=== PATIENT | female | born 1955 | race Caucasian/White ===

== ENCOUNTER → 2021-07-29 | Outpatient (CLI) | payer OTHER | END | disposition home or self-care (01) | LOC: LAB SHORT 12:00 | DX: T81.30XA Disruption of wound, unspecified, initial encounter (principal) | CPT/HCPCS: 87070; 87075; 87077; 87186; 87205 ==

== ENCOUNTER → 2022-04-05 | Outpatient (CLI) | payer OTHER ==
[2022-04-05 15:19] LABS: Source, Urine Clean Catch
[2022-04-05 17:37] LABS: Blood, Urine 1+ (Neg); Glucose Qualitative, Urine Neg (Neg); Ketones, Urine 1+ (Neg); Leukocyte Esterase, Urine 2+ (Neg); Nitrite, Urine Pos (Neg); Protein, Urine 2+ (Neg); Specific Gravity, Urine 1.025 (1.003-1.022); Urobilinogen, Urine 2+ (Normal)
[2022-04-05 17:47] LABS: Bilirubin, Urine 1+ (Neg)
[2022-04-05 17:48] LABS: Color, Urine Yellow (P-Yellow)
[2022-04-05 17:50] LABS: Bacteria Mod /hpf; Mucus Mod (0-Heavy); Squamous Epithelial Cells Mod /hpf (Few)
[2022-04-05 17:51] LABS: Appearance, Urine Hazy (Clear); Renal Epithelial Few /hpf (0-Rare)
[2022-04-06 10:37] LABS: Candida species (DNA Probe) Negative (NEGATIVE); G. vaginalis (DNA Probe) Negative (NEGATIVE); T. vaginalis (DNA Probe) Negative (NEGATIVE)
[2022-04-06 15:11] LABS: HPV 16 Negative (Negative); HPV 18 Negative (Negative); HPV OTHER HR TYPES Negative (Negative)
== END | disposition home or self-care (01) ==
LOC: LAB SHORT 14:36 → LAB 14:36
PROVIDERS: Obstetrics & Gynecology
DX: Z01.419 Encounter for gynecological examination (general) (routine) without abnormal findings (principal); N89.8 Other specified noninflammatory disorders of vagina; R10.2 Pelvic and perineal pain
CPT/HCPCS: 81001; 87086; 87480; 87510; 87624; 87660; G0123

== ENCOUNTER 2022-05-17 14:47 | Day surgery (SDC) | payer OTHER ==
[~2022-05-17] VITALS: Ht 167.6 cm; Wt 243.2 kg
[2022-05-17] MEDS ORDERED: AMIT50 PO (15:14)
[2022-05-17] MEDS ORDERED: Aspir 8181 MG PO (15:16)
[2022-05-17] MEDS ORDERED: Celexa20 MG PO (15:17)
[2022-05-17] MEDS ORDERED: METO25 PO (15:19)
[2022-05-17] MEDS ORDERED: DONEPEZIL HCL10 MG PO (15:19)
[2022-05-17] MEDS ORDERED: CLOP75 PO (15:19)
[2022-05-17] MEDS ORDERED: OMEP20ER PO (15:20)
[2022-05-17] MEDS ORDERED: OXYB5 PO (15:20)
[2022-05-17] MEDS ORDERED: SIMV40 PO (15:20)
[2022-05-17] MEDS ORDERED: OXYC5 PO ×2 (15:24)
== END 2022-05-17 16:37 | disposition home or self-care (01) ==
LOC: ORSCSDS 14:47
PROVIDERS: Ophthalmology
PROC: 08RJ3JZ Replacement of Right Lens with Synthetic Substitute, Percutaneous Approach (ICD-10-PCS; principal; 2022-05-17 16:00)
DX: H25.11 Age-related nuclear cataract, right eye (principal); I10 Essential (primary) hypertension; E78.00 Pure hypercholesterolemia, unspecified; K21.9 Gastro-esophageal reflux disease without esophagitis; I25.2 Old myocardial infarction; E03.9 Hypothyroidism, unspecified; R73.03 Prediabetes; Z79.02 Long term (current) use of antithrombotics/antiplatelets; Z79.82 Long term (current) use of aspirin; Z79.899 Other long term (current) drug therapy
CPT/HCPCS: 82947; J2001; J2250; J3010; J3301; J7040; V2632

== ENCOUNTER 2022-05-24 11:17 | Day surgery (SDC) | payer OTHER ==
[~2022-05-24] VITALS: Ht 167.6 cm; Wt 107.5 kg
[~2022-05-24 11:17] MED LIST: AMIT50 PO; Aspir 8181 MG PO; CLOP75 PO; Celexa20 MG PO; DONEPEZIL HCL10 MG PO; METO25 PO; OMEP20ER PO; OXYB5 PO; OXYC5 PO; SIMV40 PO
--- NOTE | 2022-05-24 11:35 | NUR ---
05/24/22 1135 Mamadou Ho CALL LIGHT WITHIN REACH. TETRACAINE IN LEFT EYE AT 1135 AND PLEDGETT AT 1136
== END 2022-05-24 13:17 | disposition home or self-care (01) ==
LOC: ORSCSDS 11:17
PROVIDERS: Ophthalmology
PROC: 08RK3JZ Replacement of Left Lens with Synthetic Substitute, Percutaneous Approach (ICD-10-PCS; principal; 2022-05-24 12:30)
DX: H25.12 Age-related nuclear cataract, left eye (principal); Z96.1 Presence of intraocular lens; I10 Essential (primary) hypertension; K21.9 Gastro-esophageal reflux disease without esophagitis; E66.9 Obesity, unspecified; Z68.38 Body mass index [BMI] 38.0-38.9, adult; Z79.82 Long term (current) use of aspirin; Z79.899 Other long term (current) drug therapy
CPT/HCPCS: 82947; J2001; J2250; J3010; J3301; J7040; V2632

== ENCOUNTER → 2022-06-27 | Outpatient (CLI) | payer OTHER | END | disposition home or self-care (01) | LOC: LAB 12:46 → LAB SHORT 12:46 | DX: N39.0 Urinary tract infection, site not specified (principal) | CPT/HCPCS: 87086; 87147 ==

== ENCOUNTER → 2023-11-29 | Outpatient (CLI) | payer OTHER ==
[2023-11-29 17:23] LABS: Creatinine, Urine Random 54.4 mg/dL (27.00-270.00); Microalb/Creat Ratio UR, Rand 9.375 mg/g (0.000-30.000); Microalbumin, Random Urine 5.1 mg/L (0.000-20.000)
== END | disposition home or self-care (01) ==
LOC: LAB SHORT 13:06 → LAB 13:06
PROVIDERS: Family Medicine
DX: E11.9 Type 2 diabetes mellitus without complications (principal)
CPT/HCPCS: 82043; 82570

== ENCOUNTER → 2024-08-14 | Outpatient (CLI) | payer OTHER ==
[~2024-08-14] MED LIST changes: +AMIT25 PO; +EUTHYROX125 MCG PO; +JARDIANCE10 MG PO; +METF500 PO; +METO25ER PO; +TIROSINT PO; +ZOLP5 PO
== END ==
LOC: LAB SHORT 15:34 → LAB 15:34
DX: N30.01 Acute cystitis with hematuria (principal)
CPT/HCPCS: 87086

== ENCOUNTER 2024-08-30 03:31 | Day surgery (SDC) | payer MEDICARE, OTHER ==
[2024-08-30] MEDS ORDERED: Lidocaine HCl 4% Cream 5 GM ONE (13:42)
[2024-08-30] MEDS ORDERED: Silver Nitr/Potassium Nitrate 1 EA APPL ONE (14:10)
== END 2024-08-30 23:00 | disposition home or self-care (01) ==
LOC: WOUND 03:31
DX: L98.492 Non-pressure chronic ulcer of skin of other sites with fat layer exposed (principal); N64.1 Fat necrosis of breast; Y84.2 Radiological procedure and radiotherapy as the cause of abnormal reaction of the patient, or of later complication, without mention of misadventure at the time of the procedure; L59.8 Other specified disorders of the skin and subcutaneous tissue related to radiation; G30.9 Alzheimer's disease, unspecified; F02.80 Dementia in other diseases classified elsewhere, unspecified severity, without behavioral disturbance, psychotic disturbance, mood disturbance, and anxiety; E11.42 Type 2 diabetes mellitus with diabetic polyneuropathy; I11.0 Hypertensive heart disease with heart failure; I50.22 Chronic systolic (congestive) heart failure; K21.9 Gastro-esophageal reflux disease without esophagitis; E03.9 Hypothyroidism, unspecified; Z85.3 Personal history of malignant neoplasm of breast; Z87.891 Personal history of nicotine dependence; Z79.84 Long term (current) use of oral hypoglycemic drugs; Z88.5 Allergy status to narcotic agent; Z88.2 Allergy status to sulfonamides; Z88.8 Allergy status to other drugs, medicaments and biological substances; Z90.49 Acquired absence of other specified parts of digestive tract
CPT/HCPCS: 11104; 88305; 88312; A6213; A9270; G0463

== ENCOUNTER 2024-09-06 04:03 | Day surgery (SDC) | payer MEDICARE, OTHER | END 2024-09-06 23:00 | disposition home or self-care (01) | LOC: WOUND 04:03 | DX: L59.8 Other specified disorders of the skin and subcutaneous tissue related to radiation (principal); L98.492 Non-pressure chronic ulcer of skin of other sites with fat layer exposed; L58.9 Radiodermatitis, unspecified; E11.42 Type 2 diabetes mellitus with diabetic polyneuropathy; I50.22 Chronic systolic (congestive) heart failure; G30.9 Alzheimer's disease, unspecified; Z85.3 Personal history of malignant neoplasm of breast | CPT/HCPCS: A6213 ==

== ENCOUNTER 2024-09-12 00:17 | Day surgery (SDC) | payer MEDICARE, OTHER | END 2024-09-12 23:00 | disposition home or self-care (01) | LOC: WOUND 00:17 | DX: T81.31XA Disruption of external operation (surgical) wound, not elsewhere classified, initial encounter (principal); L98.492 Non-pressure chronic ulcer of skin of other sites with fat layer exposed; L58.9 Radiodermatitis, unspecified; E11.42 Type 2 diabetes mellitus with diabetic polyneuropathy; I50.22 Chronic systolic (congestive) heart failure; G30.9 Alzheimer's disease, unspecified; Z85.3 Personal history of malignant neoplasm of breast; Y83.8 Other surgical procedures as the cause of abnormal reaction of the patient, or of later complication, without mention of misadventure at the time of the procedure | CPT/HCPCS: A6213 ==

== ENCOUNTER 2024-09-19 04:00 | Day surgery (SDC) | payer MEDICARE, OTHER ==
[2024-09-19] MEDS ORDERED: Lidocaine HCl 4% Cream 5 GM ONE (13:22)
== END 2024-09-19 23:00 | disposition home or self-care (01) ==
LOC: WOUND 04:00
DX: T81.31XA Disruption of external operation (surgical) wound, not elsewhere classified, initial encounter (principal); L58.9 Radiodermatitis, unspecified; E11.42 Type 2 diabetes mellitus with diabetic polyneuropathy; G30.9 Alzheimer's disease, unspecified; F02.80 Dementia in other diseases classified elsewhere, unspecified severity, without behavioral disturbance, psychotic disturbance, mood disturbance, and anxiety; I50.22 Chronic systolic (congestive) heart failure; Z85.3 Personal history of malignant neoplasm of breast; Z90.11 Acquired absence of right breast and nipple
CPT/HCPCS: A6213; A9270

== ENCOUNTER 2024-09-26 01:56 | Day surgery (SDC) | payer MEDICARE, OTHER | END 2024-09-26 23:00 | disposition home or self-care (01) | LOC: WOUND 01:56 | DX: L98.492 Non-pressure chronic ulcer of skin of other sites with fat layer exposed (principal); L59.8 Other specified disorders of the skin and subcutaneous tissue related to radiation; L58.9 Radiodermatitis, unspecified; E11.42 Type 2 diabetes mellitus with diabetic polyneuropathy; I50.22 Chronic systolic (congestive) heart failure; G30.9 Alzheimer's disease, unspecified; Z85.3 Personal history of malignant neoplasm of breast | CPT/HCPCS: A6213 ==

== ENCOUNTER 2024-10-02 01:50 | Day surgery (SDC) | payer MEDICARE, OTHER ==
[2024-10-02] MEDS ORDERED: Lidocaine HCl 4% Cream 5 GM ONE (12:48)
== END 2024-10-02 23:00 ==
LOC: WOUND 01:50
DX: L98.492 Non-pressure chronic ulcer of skin of other sites with fat layer exposed (principal); L59.8 Other specified disorders of the skin and subcutaneous tissue related to radiation; L58.9 Radiodermatitis, unspecified; E11.42 Type 2 diabetes mellitus with diabetic polyneuropathy; I50.22 Chronic systolic (congestive) heart failure; G30.9 Alzheimer's disease, unspecified; Z85.3 Personal history of malignant neoplasm of breast
CPT/HCPCS: A6213; A9270

== ENCOUNTER 2024-10-10 01:49 | Day surgery (SDC) | payer MEDICARE, OTHER ==
[2024-10-10] MEDS ORDERED: Lidocaine HCl 4% Cream 5 GM ONE (14:11)
== END 2024-10-10 23:00 | disposition home or self-care (01) ==
LOC: WOUND 01:49
DX: E11.622 Type 2 diabetes mellitus with other skin ulcer (principal); L98.492 Non-pressure chronic ulcer of skin of other sites with fat layer exposed; L59.8 Other specified disorders of the skin and subcutaneous tissue related to radiation; L58.9 Radiodermatitis, unspecified; I50.22 Chronic systolic (congestive) heart failure; G30.9 Alzheimer's disease, unspecified; Z85.3 Personal history of malignant neoplasm of breast
CPT/HCPCS: A6213; A9270

== ENCOUNTER 2024-10-17 01:16 | Day surgery (SDC) | payer MEDICARE, OTHER ==
[2024-10-17] MEDS ORDERED: Lidocaine HCl 4% Cream 5 GM ONE (12:51)
== END 2024-10-17 23:00 | disposition home or self-care (01) ==
LOC: WOUND 01:16
DX: E11.622 Type 2 diabetes mellitus with other skin ulcer (principal); L98.492 Non-pressure chronic ulcer of skin of other sites with fat layer exposed; L59.8 Other specified disorders of the skin and subcutaneous tissue related to radiation; L58.9 Radiodermatitis, unspecified; E11.42 Type 2 diabetes mellitus with diabetic polyneuropathy; I50.22 Chronic systolic (congestive) heart failure; G30.9 Alzheimer's disease, unspecified
CPT/HCPCS: A6213; A9270

== ENCOUNTER 2024-10-31 01:44 | Day surgery (SDC) | payer MEDICARE, OTHER ==
[2024-10-31] MEDS ORDERED: Lidocaine HCl 4% Cream 5 GM ONE (12:50)
== END 2024-10-31 23:00 | disposition home or self-care (01) ==
LOC: WOUND 01:44
DX: T81.31XA Disruption of external operation (surgical) wound, not elsewhere classified, initial encounter (principal); L98.492 Non-pressure chronic ulcer of skin of other sites with fat layer exposed; L59.8 Other specified disorders of the skin and subcutaneous tissue related to radiation; E11.42 Type 2 diabetes mellitus with diabetic polyneuropathy; I50.22 Chronic systolic (congestive) heart failure; G30.9 Alzheimer's disease, unspecified; Z85.3 Personal history of malignant neoplasm of breast; Y83.8 Other surgical procedures as the cause of abnormal reaction of the patient, or of later complication, without mention of misadventure at the time of the procedure
CPT/HCPCS: A6196; A6213; A9270

== ENCOUNTER 2024-11-21 00:50 | Day surgery (SDC) | payer MEDICARE, OTHER ==
[2024-11-21] MEDS ORDERED: Lidocaine HCl 4% Cream 5 GM ONE (13:06)
== END 2024-11-21 23:00 | disposition home or self-care (01) ==
LOC: WOUND 00:50
DX: L98.492 Non-pressure chronic ulcer of skin of other sites with fat layer exposed (principal); L59.8 Other specified disorders of the skin and subcutaneous tissue related to radiation; L58.9 Radiodermatitis, unspecified; E11.42 Type 2 diabetes mellitus with diabetic polyneuropathy; I50.22 Chronic systolic (congestive) heart failure; G30.9 Alzheimer's disease, unspecified; Z85.3 Personal history of malignant neoplasm of breast
CPT/HCPCS: A9270

== ENCOUNTER 2024-12-19 01:30 | Day surgery (SDC) | payer MEDICARE, OTHER ==
[2024-12-19] MEDS ORDERED: Lidocaine HCl 4% Cream 5 GM ONE (13:07)
== END 2024-12-19 23:00 | disposition home or self-care (01) ==
LOC: WOUND 01:30
DX: E11.622 Type 2 diabetes mellitus with other skin ulcer (principal); L98.492 Non-pressure chronic ulcer of skin of other sites with fat layer exposed; L58.9 Radiodermatitis, unspecified; L59.8 Other specified disorders of the skin and subcutaneous tissue related to radiation; E11.42 Type 2 diabetes mellitus with diabetic polyneuropathy; I50.22 Chronic systolic (congestive) heart failure; G30.9 Alzheimer's disease, unspecified; Z85.3 Personal history of malignant neoplasm of breast
CPT/HCPCS: A9270

== ENCOUNTER → 2024-12-20 | Outpatient (CLI) | payer MEDICARE, OTHER ==
[2024-12-20 18:33] LABS: Creatinine, Urine Random 119.0 mg/dL (27.00-270.00); Microalb/Creat Ratio UR, Rand 11.092 mg/g (0.000-30.000); Microalbumin, Random Urine 13.2 mg/L (0.000-20.000)
== END ==
LOC: LAB SHORT 16:57 → LAB 16:57
PROVIDERS: Family Medicine
DX: E11.9 Type 2 diabetes mellitus without complications (principal)
CPT/HCPCS: 82043; 82570; 83036

== ENCOUNTER 2024-12-26 02:20 | Day surgery (SDC) | payer MEDICARE, OTHER ==
[2024-12-26] MEDS ORDERED: Lidocaine HCl 4% Cream 5 GM ONE (13:09)
== END 2024-12-26 23:00 | disposition home or self-care (01) ==
LOC: WOUND 02:20
DX: L98.492 Non-pressure chronic ulcer of skin of other sites with fat layer exposed (principal); L59.8 Other specified disorders of the skin and subcutaneous tissue related to radiation; L58.9 Radiodermatitis, unspecified; E11.42 Type 2 diabetes mellitus with diabetic polyneuropathy; I50.22 Chronic systolic (congestive) heart failure; G30.9 Alzheimer's disease, unspecified; Z85.3 Personal history of malignant neoplasm of breast
CPT/HCPCS: A9270

== ENCOUNTER 2025-01-02 03:36 | Day surgery (SDC) | payer MEDICARE, OTHER ==
[2025-01-02] MEDS ORDERED: Lidocaine HCl 4% Cream 5 GM ONE (15:43)
== END 2025-01-02 23:00 | disposition home or self-care (01) ==
LOC: WOUND 03:36
DX: L98.492 Non-pressure chronic ulcer of skin of other sites with fat layer exposed (principal); L58.9 Radiodermatitis, unspecified; E11.42 Type 2 diabetes mellitus with diabetic polyneuropathy; I50.22 Chronic systolic (congestive) heart failure; G30.9 Alzheimer's disease, unspecified; Z85.3 Personal history of malignant neoplasm of breast; Z88.2 Allergy status to sulfonamides; Z88.5 Allergy status to narcotic agent; Z88.8 Allergy status to other drugs, medicaments and biological substances; Z91.048 Other nonmedicinal substance allergy status
CPT/HCPCS: A9270

== ENCOUNTER 2025-01-09 03:44 | Day surgery (SDC) | payer MEDICARE, OTHER ==
[2025-01-09] MEDS ORDERED: Lidocaine HCl 4% Cream 5 GM ONE (12:53)
== END 2025-01-09 23:00 | disposition home or self-care (01) ==
LOC: WOUND 03:44
DX: S21.001A Unspecified open wound of right breast, initial encounter (principal); L58.9 Radiodermatitis, unspecified; E11.622 Type 2 diabetes mellitus with other skin ulcer; L98.492 Non-pressure chronic ulcer of skin of other sites with fat layer exposed; E11.42 Type 2 diabetes mellitus with diabetic polyneuropathy; I50.22 Chronic systolic (congestive) heart failure; G30.9 Alzheimer's disease, unspecified; Z85.3 Personal history of malignant neoplasm of breast
CPT/HCPCS: A9270

== ENCOUNTER 2025-01-16 01:53 | Day surgery (SDC) | payer MEDICARE, OTHER ==
[2025-01-16] MEDS ORDERED: Lidocaine HCl 4% Cream 5 GM ONE (13:18)
== END 2025-01-16 23:00 | disposition home or self-care (01) ==
LOC: WOUND 01:53
DX: T81.31XA Disruption of external operation (surgical) wound, not elsewhere classified, initial encounter (principal); L59.8 Other specified disorders of the skin and subcutaneous tissue related to radiation; E11.42 Type 2 diabetes mellitus with diabetic polyneuropathy; I50.22 Chronic systolic (congestive) heart failure; G30.9 Alzheimer's disease, unspecified; Z85.3 Personal history of malignant neoplasm of breast; Z90.11 Acquired absence of right breast and nipple
CPT/HCPCS: A9270

== ENCOUNTER 2025-01-30 02:10 | Day surgery (SDC) | payer MEDICARE, OTHER ==
[2025-01-30] MEDS ORDERED: Lidocaine HCl 4% Cream 5 GM ONE (11:10)
== END 2025-01-30 23:00 | disposition home or self-care (01) ==
LOC: WOUND 02:10
DX: T81.31XD Disruption of external operation (surgical) wound, not elsewhere classified, subsequent encounter (principal); L58.9 Radiodermatitis, unspecified; E11.42 Type 2 diabetes mellitus with diabetic polyneuropathy; I50.22 Chronic systolic (congestive) heart failure; G30.9 Alzheimer's disease, unspecified; F02.80 Dementia in other diseases classified elsewhere, unspecified severity, without behavioral disturbance, psychotic disturbance, mood disturbance, and anxiety; Z85.3 Personal history of malignant neoplasm of breast
CPT/HCPCS: A9270; G0463

== ENCOUNTER 2025-02-06 03:24 | Day surgery (SDC) | payer MEDICARE, OTHER ==
[2025-02-06] MEDS ORDERED: Lidocaine HCl 4% Cream 5 GM ONE (12:24)
== END 2025-02-06 23:02 | disposition home or self-care (01) ==
LOC: WOUND 03:24
DX: T81.31XA Disruption of external operation (surgical) wound, not elsewhere classified, initial encounter (principal); L98.492 Non-pressure chronic ulcer of skin of other sites with fat layer exposed; L58.9 Radiodermatitis, unspecified; E11.42 Type 2 diabetes mellitus with diabetic polyneuropathy; I50.22 Chronic systolic (congestive) heart failure; G30.9 Alzheimer's disease, unspecified; F02.80 Dementia in other diseases classified elsewhere, unspecified severity, without behavioral disturbance, psychotic disturbance, mood disturbance, and anxiety; Z85.3 Personal history of malignant neoplasm of breast
CPT/HCPCS: A9270

== ENCOUNTER 2025-02-13 00:44 | Day surgery (SDC) | payer MEDICARE, OTHER ==
[2025-02-13] MEDS ORDERED: Lidocaine HCl 4% Cream 5 GM ONE (12:42)
== END 2025-02-13 23:00 | disposition home or self-care (01) ==
LOC: WOUND 00:44
DX: T81.31XA Disruption of external operation (surgical) wound, not elsewhere classified, initial encounter (principal); L58.9 Radiodermatitis, unspecified; L59.8 Other specified disorders of the skin and subcutaneous tissue related to radiation; E11.42 Type 2 diabetes mellitus with diabetic polyneuropathy; I50.22 Chronic systolic (congestive) heart failure; G30.9 Alzheimer's disease, unspecified; F02.80 Dementia in other diseases classified elsewhere, unspecified severity, without behavioral disturbance, psychotic disturbance, mood disturbance, and anxiety; Z85.3 Personal history of malignant neoplasm of breast
CPT/HCPCS: A9270

== ENCOUNTER 2025-02-20 00:26 | Day surgery (SDC) | payer MEDICARE, OTHER | END 2025-02-20 23:00 | disposition home or self-care (01) | LOC: WOUND 00:26 | DX: T81.31XD Disruption of external operation (surgical) wound, not elsewhere classified, subsequent encounter (principal); L59.8 Other specified disorders of the skin and subcutaneous tissue related to radiation; E11.42 Type 2 diabetes mellitus with diabetic polyneuropathy; I50.22 Chronic systolic (congestive) heart failure; G30.9 Alzheimer's disease, unspecified; F02.80 Dementia in other diseases classified elsewhere, unspecified severity, without behavioral disturbance, psychotic disturbance, mood disturbance, and anxiety; Z85.3 Personal history of malignant neoplasm of breast | CPT/HCPCS: G0463 ==

== ENCOUNTER 2025-03-06 02:16 | Day surgery (SDC) | payer MEDICARE, OTHER ==
[2025-03-06] MEDS ORDERED: Lidocaine HCl 4% Cream 5 GM ONE (12:51)
== END 2025-03-06 23:00 | disposition home or self-care (01) ==
LOC: WOUND 02:16
DX: L58.9 Radiodermatitis, unspecified (principal); T81.31XA Disruption of external operation (surgical) wound, not elsewhere classified, initial encounter; L59.8 Other specified disorders of the skin and subcutaneous tissue related to radiation; E11.42 Type 2 diabetes mellitus with diabetic polyneuropathy; I50.22 Chronic systolic (congestive) heart failure; G30.9 Alzheimer's disease, unspecified; F02.80 Dementia in other diseases classified elsewhere, unspecified severity, without behavioral disturbance, psychotic disturbance, mood disturbance, and anxiety; Z85.3 Personal history of malignant neoplasm of breast; Z90.11 Acquired absence of right breast and nipple
CPT/HCPCS: A9270

== ENCOUNTER 2025-03-06 02:20 | Day surgery (SDC) | payer MEDICARE, OTHER | END 2025-03-06 23:00 | disposition home or self-care (01) | LOC: HBO 02:20 | DX: L59.8 Other specified disorders of the skin and subcutaneous tissue related to radiation (principal); Y84.2 Radiological procedure and radiotherapy as the cause of abnormal reaction of the patient, or of later complication, without mention of misadventure at the time of the procedure; L58.9 Radiodermatitis, unspecified; E11.42 Type 2 diabetes mellitus with diabetic polyneuropathy; I50.22 Chronic systolic (congestive) heart failure; G30.9 Alzheimer's disease, unspecified; F02.80 Dementia in other diseases classified elsewhere, unspecified severity, without behavioral disturbance, psychotic disturbance, mood disturbance, and anxiety; Z85.3 Personal history of malignant neoplasm of breast; T81.31XA Disruption of external operation (surgical) wound, not elsewhere classified, initial encounter; Z90.11 Acquired absence of right breast and nipple | CPT/HCPCS: 82947; A9270; G0277 ==

== ENCOUNTER 2025-03-07 00:33 | Day surgery (SDC) | payer MEDICARE, OTHER | END 2025-03-07 23:00 | disposition home or self-care (01) | LOC: HBO 00:33 | DX: L98.492 Non-pressure chronic ulcer of skin of other sites with fat layer exposed (principal); L59.8 Other specified disorders of the skin and subcutaneous tissue related to radiation; L58.9 Radiodermatitis, unspecified; E11.42 Type 2 diabetes mellitus with diabetic polyneuropathy; I50.22 Chronic systolic (congestive) heart failure; G30.9 Alzheimer's disease, unspecified; Z85.3 Personal history of malignant neoplasm of breast | CPT/HCPCS: 82947; G0277 ==

== ENCOUNTER 2025-03-10 01:29 | Day surgery (SDC) | payer MEDICARE, OTHER | END 2025-03-10 23:00 | disposition home or self-care (01) | LOC: HBO 01:29 | DX: L59.8 Other specified disorders of the skin and subcutaneous tissue related to radiation (principal); Y84.2 Radiological procedure and radiotherapy as the cause of abnormal reaction of the patient, or of later complication, without mention of misadventure at the time of the procedure; L58.9 Radiodermatitis, unspecified; E11.42 Type 2 diabetes mellitus with diabetic polyneuropathy; G30.9 Alzheimer's disease, unspecified; F02.80 Dementia in other diseases classified elsewhere, unspecified severity, without behavioral disturbance, psychotic disturbance, mood disturbance, and anxiety; I50.22 Chronic systolic (congestive) heart failure; Z85.3 Personal history of malignant neoplasm of breast | CPT/HCPCS: 82947; G0277 ==

== ENCOUNTER 2025-03-11 02:32 | Day surgery (SDC) | payer MEDICARE, OTHER | END 2025-03-11 22:00 | disposition home or self-care (01) | LOC: HBO 02:32 | DX: L59.8 Other specified disorders of the skin and subcutaneous tissue related to radiation (principal); Y84.2 Radiological procedure and radiotherapy as the cause of abnormal reaction of the patient, or of later complication, without mention of misadventure at the time of the procedure; L58.9 Radiodermatitis, unspecified; E11.42 Type 2 diabetes mellitus with diabetic polyneuropathy; I50.22 Chronic systolic (congestive) heart failure; G30.9 Alzheimer's disease, unspecified; F02.80 Dementia in other diseases classified elsewhere, unspecified severity, without behavioral disturbance, psychotic disturbance, mood disturbance, and anxiety; Z85.3 Personal history of malignant neoplasm of breast | CPT/HCPCS: 82947; G0277 ==

== ENCOUNTER 2025-03-12 02:08 | Day surgery (SDC) | payer MEDICARE, OTHER | END 2025-03-12 23:00 | disposition home or self-care (01) | LOC: HBO 02:08 | DX: L59.8 Other specified disorders of the skin and subcutaneous tissue related to radiation (principal); E11.42 Type 2 diabetes mellitus with diabetic polyneuropathy; I50.22 Chronic systolic (congestive) heart failure; G30.9 Alzheimer's disease, unspecified; Y84.2 Radiological procedure and radiotherapy as the cause of abnormal reaction of the patient, or of later complication, without mention of misadventure at the time of the procedure; Y78.1 Therapeutic (nonsurgical) and rehabilitative radiological devices associated with adverse incidents; Z85.3 Personal history of malignant neoplasm of breast | CPT/HCPCS: 82947; G0277 ==

== ENCOUNTER 2025-03-13 00:33 | Day surgery (SDC) | payer MEDICARE, OTHER | END 2025-03-13 22:30 | disposition home or self-care (01) | LOC: HBO 00:33 | DX: L59.8 Other specified disorders of the skin and subcutaneous tissue related to radiation (principal); E11.42 Type 2 diabetes mellitus with diabetic polyneuropathy; G30.9 Alzheimer's disease, unspecified; Z85.3 Personal history of malignant neoplasm of breast; L98.492 Non-pressure chronic ulcer of skin of other sites with fat layer exposed | CPT/HCPCS: 82947; G0277 ==

== ENCOUNTER 2025-03-14 10:45 | Day surgery (SDC) | payer MEDICARE, OTHER | END 2025-03-14 23:00 | disposition home or self-care (01) | LOC: HBO 10:45 | DX: L59.8 Other specified disorders of the skin and subcutaneous tissue related to radiation (principal); Y84.2 Radiological procedure and radiotherapy as the cause of abnormal reaction of the patient, or of later complication, without mention of misadventure at the time of the procedure; L58.9 Radiodermatitis, unspecified; E11.42 Type 2 diabetes mellitus with diabetic polyneuropathy; I50.22 Chronic systolic (congestive) heart failure; G30.9 Alzheimer's disease, unspecified; F02.80 Dementia in other diseases classified elsewhere, unspecified severity, without behavioral disturbance, psychotic disturbance, mood disturbance, and anxiety; Z85.3 Personal history of malignant neoplasm of breast | CPT/HCPCS: 82947; G0277 ==

== ENCOUNTER 2025-03-18 00:39 | Day surgery (SDC) | payer MEDICARE, OTHER | END 2025-03-18 23:00 | disposition home or self-care (01) | LOC: HBO 00:39 | DX: L59.8 Other specified disorders of the skin and subcutaneous tissue related to radiation (principal); L98.492 Non-pressure chronic ulcer of skin of other sites with fat layer exposed; E11.42 Type 2 diabetes mellitus with diabetic polyneuropathy; I50.22 Chronic systolic (congestive) heart failure; G30.9 Alzheimer's disease, unspecified; Z85.3 Personal history of malignant neoplasm of breast | CPT/HCPCS: 82947; G0277 ==

== ENCOUNTER 2025-03-20 01:05 | Day surgery (SDC) | payer MEDICARE, OTHER | END 2025-03-20 23:00 | disposition home or self-care (01) | LOC: HBO 01:05 | DX: L59.8 Other specified disorders of the skin and subcutaneous tissue related to radiation (principal); Y84.2 Radiological procedure and radiotherapy as the cause of abnormal reaction of the patient, or of later complication, without mention of misadventure at the time of the procedure; L58.9 Radiodermatitis, unspecified; E11.42 Type 2 diabetes mellitus with diabetic polyneuropathy; I50.22 Chronic systolic (congestive) heart failure; G30.9 Alzheimer's disease, unspecified; F02.80 Dementia in other diseases classified elsewhere, unspecified severity, without behavioral disturbance, psychotic disturbance, mood disturbance, and anxiety; Z85.3 Personal history of malignant neoplasm of breast; T81.31XA Disruption of external operation (surgical) wound, not elsewhere classified, initial encounter | CPT/HCPCS: 82947; A9270; G0277 ==

== ENCOUNTER 2025-03-25 01:48 | Day surgery (SDC) | payer MEDICARE, OTHER | END 2025-03-25 23:00 | disposition home or self-care (01) | LOC: HBO 01:48 | DX: L59.8 Other specified disorders of the skin and subcutaneous tissue related to radiation (principal); Y84.2 Radiological procedure and radiotherapy as the cause of abnormal reaction of the patient, or of later complication, without mention of misadventure at the time of the procedure; L58.9 Radiodermatitis, unspecified; E11.42 Type 2 diabetes mellitus with diabetic polyneuropathy; I50.22 Chronic systolic (congestive) heart failure; G30.9 Alzheimer's disease, unspecified; F02.80 Dementia in other diseases classified elsewhere, unspecified severity, without behavioral disturbance, psychotic disturbance, mood disturbance, and anxiety; Z85.3 Personal history of malignant neoplasm of breast | CPT/HCPCS: 82947; G0277 ==

== ENCOUNTER 2025-03-26 00:24 | Day surgery (SDC) | payer MEDICARE, OTHER | END 2025-03-26 23:00 | disposition home or self-care (01) | LOC: HBO 00:24 | DX: L59.8 Other specified disorders of the skin and subcutaneous tissue related to radiation (principal); E11.42 Type 2 diabetes mellitus with diabetic polyneuropathy; I50.22 Chronic systolic (congestive) heart failure; G30.9 Alzheimer's disease, unspecified | CPT/HCPCS: 82947; G0277 ==

== ENCOUNTER 2025-03-27 02:53 | Day surgery (SDC) | payer MEDICARE, OTHER | END 2025-03-27 23:00 | disposition home or self-care (01) | LOC: HBO 02:53 | DX: L59.8 Other specified disorders of the skin and subcutaneous tissue related to radiation (principal); L58.9 Radiodermatitis, unspecified; E11.42 Type 2 diabetes mellitus with diabetic polyneuropathy; I50.22 Chronic systolic (congestive) heart failure; G30.9 Alzheimer's disease, unspecified; F02.80 Dementia in other diseases classified elsewhere, unspecified severity, without behavioral disturbance, psychotic disturbance, mood disturbance, and anxiety; Z85.3 Personal history of malignant neoplasm of breast | CPT/HCPCS: 82947; A9270; G0277 ==

== ENCOUNTER 2025-03-27 03:00 | Day surgery (SDC) | payer MEDICARE, OTHER ==
[2025-03-27] MEDS ORDERED: Lidocaine HCl 4% Cream 5 GM ONE (12:25)
== END 2025-03-27 23:00 | disposition home or self-care (01) ==
LOC: WOUND 03:00
DX: L59.8 Other specified disorders of the skin and subcutaneous tissue related to radiation (principal); L58.9 Radiodermatitis, unspecified; E11.42 Type 2 diabetes mellitus with diabetic polyneuropathy; I50.22 Chronic systolic (congestive) heart failure; G30.9 Alzheimer's disease, unspecified; F02.80 Dementia in other diseases classified elsewhere, unspecified severity, without behavioral disturbance, psychotic disturbance, mood disturbance, and anxiety; Z85.3 Personal history of malignant neoplasm of breast
CPT/HCPCS: A9270

== ENCOUNTER 2025-03-28 02:38 | Day surgery (SDC) | payer MEDICARE, OTHER | END 2025-03-28 23:00 | disposition home or self-care (01) | LOC: HBO 02:38 | DX: L59.8 Other specified disorders of the skin and subcutaneous tissue related to radiation (principal); Y84.2 Radiological procedure and radiotherapy as the cause of abnormal reaction of the patient, or of later complication, without mention of misadventure at the time of the procedure; L58.9 Radiodermatitis, unspecified; E11.42 Type 2 diabetes mellitus with diabetic polyneuropathy; I50.22 Chronic systolic (congestive) heart failure; G30.9 Alzheimer's disease, unspecified; F02.80 Dementia in other diseases classified elsewhere, unspecified severity, without behavioral disturbance, psychotic disturbance, mood disturbance, and anxiety; Z85.3 Personal history of malignant neoplasm of breast | CPT/HCPCS: 82947; G0277 ==

== ENCOUNTER 2025-03-31 04:01 | Day surgery (SDC) | payer MEDICARE, OTHER | END 2025-03-31 23:19 | disposition home or self-care (01) | LOC: HBO 04:01 | DX: E11.622 Type 2 diabetes mellitus with other skin ulcer (principal); L98.492 Non-pressure chronic ulcer of skin of other sites with fat layer exposed; L59.8 Other specified disorders of the skin and subcutaneous tissue related to radiation; L58.9 Radiodermatitis, unspecified; E11.42 Type 2 diabetes mellitus with diabetic polyneuropathy; I50.22 Chronic systolic (congestive) heart failure; G30.9 Alzheimer's disease, unspecified; Z79.02 Long term (current) use of antithrombotics/antiplatelets; Z79.84 Long term (current) use of oral hypoglycemic drugs; Z79.890 Hormone replacement therapy; Z79.899 Other long term (current) drug therapy; Z85.3 Personal history of malignant neoplasm of breast; Z88.2 Allergy status to sulfonamides; Z88.5 Allergy status to narcotic agent; Z88.8 Allergy status to other drugs, medicaments and biological substances | CPT/HCPCS: 82947; G0277 ==

== ENCOUNTER 2025-04-01 01:01 | Day surgery (SDC) | payer MEDICARE, OTHER | END 2025-04-01 23:00 | disposition home or self-care (01) | LOC: HBO 01:01 | DX: L59.8 Other specified disorders of the skin and subcutaneous tissue related to radiation (principal); Y84.2 Radiological procedure and radiotherapy as the cause of abnormal reaction of the patient, or of later complication, without mention of misadventure at the time of the procedure; L58.9 Radiodermatitis, unspecified; E11.42 Type 2 diabetes mellitus with diabetic polyneuropathy; I50.22 Chronic systolic (congestive) heart failure; G30.9 Alzheimer's disease, unspecified; F02.80 Dementia in other diseases classified elsewhere, unspecified severity, without behavioral disturbance, psychotic disturbance, mood disturbance, and anxiety; Z85.3 Personal history of malignant neoplasm of breast | CPT/HCPCS: 82947; G0277 ==

== ENCOUNTER 2025-04-02 03:06 | Day surgery (SDC) | payer MEDICARE, OTHER | END 2025-04-02 23:00 | disposition home or self-care (01) | LOC: HBO 03:06 | DX: L59.8 Other specified disorders of the skin and subcutaneous tissue related to radiation (principal); Y84.2 Radiological procedure and radiotherapy as the cause of abnormal reaction of the patient, or of later complication, without mention of misadventure at the time of the procedure; L58.9 Radiodermatitis, unspecified; E11.42 Type 2 diabetes mellitus with diabetic polyneuropathy; I50.22 Chronic systolic (congestive) heart failure; G30.9 Alzheimer's disease, unspecified; F02.80 Dementia in other diseases classified elsewhere, unspecified severity, without behavioral disturbance, psychotic disturbance, mood disturbance, and anxiety; Z85.3 Personal history of malignant neoplasm of breast | CPT/HCPCS: 82947; G0277 ==

== ENCOUNTER 2025-04-03 00:17 | Day surgery (SDC) | payer MEDICARE, OTHER ==
[2025-04-03] MEDS ORDERED: Lidocaine HCl 4% Cream 5 GM ONE (09:14)
== END 2025-04-03 23:00 | disposition home or self-care (01) ==
LOC: WOUND 00:17
DX: L59.8 Other specified disorders of the skin and subcutaneous tissue related to radiation (principal); L98.492 Non-pressure chronic ulcer of skin of other sites with fat layer exposed; L58.9 Radiodermatitis, unspecified; E11.42 Type 2 diabetes mellitus with diabetic polyneuropathy; I50.22 Chronic systolic (congestive) heart failure; G30.9 Alzheimer's disease, unspecified; Z85.3 Personal history of malignant neoplasm of breast; Z88.2 Allergy status to sulfonamides; Z88.5 Allergy status to narcotic agent; Z88.8 Allergy status to other drugs, medicaments and biological substances; Z91.048 Other nonmedicinal substance allergy status; Y84.2 Radiological procedure and radiotherapy as the cause of abnormal reaction of the patient, or of later complication, without mention of misadventure at the time of the procedure
CPT/HCPCS: 82947; A9270; G0277

== ENCOUNTER 2025-04-03 00:18 | Day surgery (SDC) | payer MEDICARE, OTHER | END 2025-04-03 23:00 | disposition home or self-care (01) | LOC: HBO 00:18 | DX: L59.8 Other specified disorders of the skin and subcutaneous tissue related to radiation (principal); L98.492 Non-pressure chronic ulcer of skin of other sites with fat layer exposed; L58.9 Radiodermatitis, unspecified; E11.42 Type 2 diabetes mellitus with diabetic polyneuropathy; I50.22 Chronic systolic (congestive) heart failure; G30.9 Alzheimer's disease, unspecified; Z85.3 Personal history of malignant neoplasm of breast; Z88.2 Allergy status to sulfonamides; Z88.5 Allergy status to narcotic agent; Z88.8 Allergy status to other drugs, medicaments and biological substances; Z91.048 Other nonmedicinal substance allergy status; Y84.2 Radiological procedure and radiotherapy as the cause of abnormal reaction of the patient, or of later complication, without mention of misadventure at the time of the procedure | CPT/HCPCS: 82947; G0277 ==

== ENCOUNTER 2025-04-04 00:13 | Day surgery (SDC) | payer MEDICARE, OTHER | END 2025-04-04 23:00 | disposition home or self-care (01) | LOC: HBO 00:13 | DX: E11.622 Type 2 diabetes mellitus with other skin ulcer (principal); L98.492 Non-pressure chronic ulcer of skin of other sites with fat layer exposed; L59.8 Other specified disorders of the skin and subcutaneous tissue related to radiation; L58.9 Radiodermatitis, unspecified; E11.42 Type 2 diabetes mellitus with diabetic polyneuropathy; I50.22 Chronic systolic (congestive) heart failure; G30.9 Alzheimer's disease, unspecified; Z85.3 Personal history of malignant neoplasm of breast | CPT/HCPCS: 82947; G0277 ==

== ENCOUNTER 2025-04-07 01:02 | Day surgery (SDC) | payer MEDICARE, OTHER | END 2025-04-07 23:00 | disposition home or self-care (01) | LOC: HBO 01:02 | DX: L59.8 Other specified disorders of the skin and subcutaneous tissue related to radiation (principal); E11.42 Type 2 diabetes mellitus with diabetic polyneuropathy; I50.22 Chronic systolic (congestive) heart failure; G30.9 Alzheimer's disease, unspecified; Z85.3 Personal history of malignant neoplasm of breast | CPT/HCPCS: 82947; G0277 ==

== ENCOUNTER 2025-04-08 01:23 | Day surgery (SDC) | payer MEDICARE, OTHER | END 2025-04-08 22:46 | disposition home or self-care (01) | LOC: HBO 01:23 | DX: L59.8 Other specified disorders of the skin and subcutaneous tissue related to radiation (principal); L58.9 Radiodermatitis, unspecified; G30.9 Alzheimer's disease, unspecified; F02.80 Dementia in other diseases classified elsewhere, unspecified severity, without behavioral disturbance, psychotic disturbance, mood disturbance, and anxiety; E11.42 Type 2 diabetes mellitus with diabetic polyneuropathy; I50.22 Chronic systolic (congestive) heart failure; Z85.3 Personal history of malignant neoplasm of breast | CPT/HCPCS: 82947; G0277 ==

== ENCOUNTER 2025-04-09 00:39 | Day surgery (SDC) | payer MEDICARE, OTHER | END 2025-04-09 23:00 | disposition home or self-care (01) | LOC: HBO 00:39 | DX: L59.8 Other specified disorders of the skin and subcutaneous tissue related to radiation (principal); E11.42 Type 2 diabetes mellitus with diabetic polyneuropathy; I50.22 Chronic systolic (congestive) heart failure; G30.9 Alzheimer's disease, unspecified; Z85.3 Personal history of malignant neoplasm of breast | CPT/HCPCS: 82947; G0277 ==

== ENCOUNTER 2025-04-10 02:33 | Day surgery (SDC) | payer MEDICARE, OTHER ==
[2025-04-10] MEDS ORDERED: Lidocaine HCl 4% Cream 5 GM ONE (08:28)
== END 2025-04-10 23:00 | disposition home or self-care (01) ==
LOC: WOUND 02:33
DX: L59.8 Other specified disorders of the skin and subcutaneous tissue related to radiation (principal); T81.31XA Disruption of external operation (surgical) wound, not elsewhere classified, initial encounter; L58.9 Radiodermatitis, unspecified; E11.42 Type 2 diabetes mellitus with diabetic polyneuropathy; I50.22 Chronic systolic (congestive) heart failure; G30.9 Alzheimer's disease, unspecified; F02.80 Dementia in other diseases classified elsewhere, unspecified severity, without behavioral disturbance, psychotic disturbance, mood disturbance, and anxiety; Z85.3 Personal history of malignant neoplasm of breast
CPT/HCPCS: 82947; A9270; G0277

== ENCOUNTER 2025-04-10 02:36 | Day surgery (SDC) | payer MEDICARE, OTHER | END 2025-04-10 23:00 | disposition home or self-care (01) | LOC: HBO 02:36 | DX: L59.8 Other specified disorders of the skin and subcutaneous tissue related to radiation (principal); L58.9 Radiodermatitis, unspecified; E11.42 Type 2 diabetes mellitus with diabetic polyneuropathy; I50.22 Chronic systolic (congestive) heart failure; G30.9 Alzheimer's disease, unspecified; F02.80 Dementia in other diseases classified elsewhere, unspecified severity, without behavioral disturbance, psychotic disturbance, mood disturbance, and anxiety; Z85.3 Personal history of malignant neoplasm of breast | CPT/HCPCS: 82947; G0277 ==

== ENCOUNTER 2025-04-11 00:57 | Day surgery (SDC) | payer MEDICARE, OTHER | END 2025-04-11 23:00 | disposition home or self-care (01) | LOC: HBO 00:57 | DX: L59.8 Other specified disorders of the skin and subcutaneous tissue related to radiation (principal); L58.9 Radiodermatitis, unspecified; L98.492 Non-pressure chronic ulcer of skin of other sites with fat layer exposed; E11.42 Type 2 diabetes mellitus with diabetic polyneuropathy; I50.22 Chronic systolic (congestive) heart failure; Z85.3 Personal history of malignant neoplasm of breast | CPT/HCPCS: 82947; G0277 ==

== ENCOUNTER 2025-04-14 00:34 | Day surgery (SDC) | payer MEDICARE, OTHER | END 2025-04-14 23:00 | disposition home or self-care (01) | LOC: HBO 00:34 | DX: L59.8 Other specified disorders of the skin and subcutaneous tissue related to radiation (principal); E11.42 Type 2 diabetes mellitus with diabetic polyneuropathy; I50.22 Chronic systolic (congestive) heart failure; G30.9 Alzheimer's disease, unspecified; Z85.3 Personal history of malignant neoplasm of breast | CPT/HCPCS: 82947; G0277 ==

== ENCOUNTER 2025-04-16 01:51 | Day surgery (SDC) | payer MEDICARE, OTHER | END 2025-04-16 23:00 | disposition home or self-care (01) | LOC: HBO 01:51 → WOUND 01:51 → HBO 23:00 | DX: L98.492 Non-pressure chronic ulcer of skin of other sites with fat layer exposed (principal); L59.8 Other specified disorders of the skin and subcutaneous tissue related to radiation; L58.9 Radiodermatitis, unspecified; E11.42 Type 2 diabetes mellitus with diabetic polyneuropathy; I50.22 Chronic systolic (congestive) heart failure; G30.9 Alzheimer's disease, unspecified; Z85.3 Personal history of malignant neoplasm of breast; Z88.2 Allergy status to sulfonamides; Z88.5 Allergy status to narcotic agent; Z88.8 Allergy status to other drugs, medicaments and biological substances; Z91.048 Other nonmedicinal substance allergy status | CPT/HCPCS: 82947; G0277 ==

== ENCOUNTER 2025-04-17 01:45 | Day surgery (SDC) | payer MEDICARE, OTHER | END 2025-04-17 23:00 | disposition home or self-care (01) | LOC: HBO 01:45 | DX: L59.8 Other specified disorders of the skin and subcutaneous tissue related to radiation (principal); L98.492 Non-pressure chronic ulcer of skin of other sites with fat layer exposed; E11.42 Type 2 diabetes mellitus with diabetic polyneuropathy; I50.22 Chronic systolic (congestive) heart failure; G30.9 Alzheimer's disease, unspecified; Z85.3 Personal history of malignant neoplasm of breast; Z88.2 Allergy status to sulfonamides; Z88.5 Allergy status to narcotic agent; Z88.8 Allergy status to other drugs, medicaments and biological substances; Z91.048 Other nonmedicinal substance allergy status; Y84.2 Radiological procedure and radiotherapy as the cause of abnormal reaction of the patient, or of later complication, without mention of misadventure at the time of the procedure | CPT/HCPCS: 82947; G0277 ==

== ENCOUNTER 2025-04-18 00:31 | Day surgery (SDC) | payer MEDICARE, OTHER | END 2025-04-18 23:00 | disposition home or self-care (01) | LOC: HBO 00:31 | DX: L59.8 Other specified disorders of the skin and subcutaneous tissue related to radiation (principal); L58.9 Radiodermatitis, unspecified; E11.42 Type 2 diabetes mellitus with diabetic polyneuropathy; I50.22 Chronic systolic (congestive) heart failure; G30.9 Alzheimer's disease, unspecified; F02.80 Dementia in other diseases classified elsewhere, unspecified severity, without behavioral disturbance, psychotic disturbance, mood disturbance, and anxiety; Z85.3 Personal history of malignant neoplasm of breast | CPT/HCPCS: 82947; G0277 ==

== ENCOUNTER 2025-04-21 00:23 | Day surgery (SDC) | payer MEDICARE, OTHER | END 2025-04-21 23:04 | disposition home or self-care (01) | LOC: HBO 00:23 | DX: L59.8 Other specified disorders of the skin and subcutaneous tissue related to radiation (principal); E11.42 Type 2 diabetes mellitus with diabetic polyneuropathy; I50.22 Chronic systolic (congestive) heart failure; Z85.3 Personal history of malignant neoplasm of breast | CPT/HCPCS: 82947; G0277 ==

== ENCOUNTER 2025-04-22 00:40 | Day surgery (SDC) | payer MEDICARE, OTHER | END 2025-04-22 22:47 | disposition home or self-care (01) | LOC: HBO 00:40 | DX: L59.8 Other specified disorders of the skin and subcutaneous tissue related to radiation (principal); L58.9 Radiodermatitis, unspecified; E11.42 Type 2 diabetes mellitus with diabetic polyneuropathy; I50.22 Chronic systolic (congestive) heart failure; G30.9 Alzheimer's disease, unspecified; F02.80 Dementia in other diseases classified elsewhere, unspecified severity, without behavioral disturbance, psychotic disturbance, mood disturbance, and anxiety; Z85.3 Personal history of malignant neoplasm of breast | CPT/HCPCS: 82947; G0277 ==

== ENCOUNTER 2025-04-23 00:14 | Day surgery (SDC) | payer MEDICARE, OTHER | END 2025-04-23 23:00 | disposition home or self-care (01) | LOC: HBO 00:14 | DX: L59.8 Other specified disorders of the skin and subcutaneous tissue related to radiation (principal); L58.9 Radiodermatitis, unspecified; E11.42 Type 2 diabetes mellitus with diabetic polyneuropathy; I50.22 Chronic systolic (congestive) heart failure; G30.9 Alzheimer's disease, unspecified; F02.80 Dementia in other diseases classified elsewhere, unspecified severity, without behavioral disturbance, psychotic disturbance, mood disturbance, and anxiety; Z85.3 Personal history of malignant neoplasm of breast | CPT/HCPCS: 82947; G0277 ==

== ENCOUNTER 2025-04-24 00:17 | Day surgery (SDC) | payer MEDICARE, OTHER ==
[2025-04-24] MEDS ORDERED: Lidocaine HCl 4% Cream 5 GM ONE (08:24)
== END 2025-04-24 23:00 | disposition home or self-care (01) ==
LOC: WOUND 00:17
DX: L59.8 Other specified disorders of the skin and subcutaneous tissue related to radiation (principal); E11.42 Type 2 diabetes mellitus with diabetic polyneuropathy; Z85.3 Personal history of malignant neoplasm of breast; I50.22 Chronic systolic (congestive) heart failure
CPT/HCPCS: A9270

== ENCOUNTER 2025-04-24 00:24 | Day surgery (SDC) | payer MEDICARE, OTHER | END 2025-04-24 23:00 | disposition home or self-care (01) | LOC: HBO 00:24 | DX: L59.8 Other specified disorders of the skin and subcutaneous tissue related to radiation (principal); E11.42 Type 2 diabetes mellitus with diabetic polyneuropathy; I50.22 Chronic systolic (congestive) heart failure; G30.9 Alzheimer's disease, unspecified; Z85.3 Personal history of malignant neoplasm of breast | CPT/HCPCS: 82947; G0277 ==

== ENCOUNTER 2025-04-25 02:41 | Day surgery (SDC) | payer MEDICARE, OTHER | END 2025-04-25 23:00 | disposition home or self-care (01) | LOC: HBO 02:41 | DX: L59.8 Other specified disorders of the skin and subcutaneous tissue related to radiation (principal); L58.9 Radiodermatitis, unspecified; E11.42 Type 2 diabetes mellitus with diabetic polyneuropathy; I50.22 Chronic systolic (congestive) heart failure; G30.9 Alzheimer's disease, unspecified; F02.80 Dementia in other diseases classified elsewhere, unspecified severity, without behavioral disturbance, psychotic disturbance, mood disturbance, and anxiety; Z85.3 Personal history of malignant neoplasm of breast | CPT/HCPCS: 82947; G0277 ==

== ENCOUNTER 2025-04-28 00:50 | Day surgery (SDC) | payer MEDICARE, OTHER | END 2025-04-28 22:00 | disposition home or self-care (01) | LOC: HBO 00:50 | DX: L59.8 Other specified disorders of the skin and subcutaneous tissue related to radiation (principal); L58.9 Radiodermatitis, unspecified; E11.42 Type 2 diabetes mellitus with diabetic polyneuropathy; I50.22 Chronic systolic (congestive) heart failure; G30.9 Alzheimer's disease, unspecified; F02.80 Dementia in other diseases classified elsewhere, unspecified severity, without behavioral disturbance, psychotic disturbance, mood disturbance, and anxiety; Z85.3 Personal history of malignant neoplasm of breast | CPT/HCPCS: 82947; G0277 ==

== ENCOUNTER 2025-04-29 01:07 | Day surgery (SDC) | payer MEDICARE, OTHER | END 2025-04-29 22:51 | disposition home or self-care (01) | LOC: HBO 01:07 | DX: L59.8 Other specified disorders of the skin and subcutaneous tissue related to radiation (principal); E11.42 Type 2 diabetes mellitus with diabetic polyneuropathy; I50.22 Chronic systolic (congestive) heart failure; Z85.3 Personal history of malignant neoplasm of breast | CPT/HCPCS: 82947; G0277 ==

== ENCOUNTER 2025-05-03 03:15 | Day surgery (SDC) | payer MEDICARE, OTHER | END 2025-05-03 23:00 | disposition home or self-care (01) | LOC: HBO 03:15 | DX: L59.8 Other specified disorders of the skin and subcutaneous tissue related to radiation (principal); L58.9 Radiodermatitis, unspecified; E11.42 Type 2 diabetes mellitus with diabetic polyneuropathy; I50.22 Chronic systolic (congestive) heart failure; G30.9 Alzheimer's disease, unspecified; F02.80 Dementia in other diseases classified elsewhere, unspecified severity, without behavioral disturbance, psychotic disturbance, mood disturbance, and anxiety; Z85.3 Personal history of malignant neoplasm of breast | CPT/HCPCS: 82947; G0277 ==

== ENCOUNTER 2025-05-05 00:36 | Day surgery (SDC) | payer MEDICARE, OTHER | END 2025-05-05 23:00 | disposition home or self-care (01) | LOC: HBO 00:36 | DX: L59.8 Other specified disorders of the skin and subcutaneous tissue related to radiation (principal); E11.42 Type 2 diabetes mellitus with diabetic polyneuropathy; I50.22 Chronic systolic (congestive) heart failure; Z85.3 Personal history of malignant neoplasm of breast | CPT/HCPCS: 82947; G0277 ==

== ENCOUNTER 2025-05-06 01:51 | Day surgery (SDC) | payer MEDICARE, OTHER | END 2025-05-06 22:00 | disposition home or self-care (01) | LOC: HBO 01:51 | DX: L59.8 Other specified disorders of the skin and subcutaneous tissue related to radiation (principal); E11.42 Type 2 diabetes mellitus with diabetic polyneuropathy; I50.22 Chronic systolic (congestive) heart failure; Z85.3 Personal history of malignant neoplasm of breast | CPT/HCPCS: 82947; G0277 ==

== ENCOUNTER 2025-05-07 01:06 | Day surgery (SDC) | payer MEDICARE, OTHER | END 2025-05-07 23:00 | disposition home or self-care (01) | LOC: HBO 01:06 | DX: L59.8 Other specified disorders of the skin and subcutaneous tissue related to radiation (principal); L98.492 Non-pressure chronic ulcer of skin of other sites with fat layer exposed; E11.42 Type 2 diabetes mellitus with diabetic polyneuropathy; I50.22 Chronic systolic (congestive) heart failure; G30.9 Alzheimer's disease, unspecified; Z85.3 Personal history of malignant neoplasm of breast; Z88.2 Allergy status to sulfonamides; Z88.5 Allergy status to narcotic agent; Z88.8 Allergy status to other drugs, medicaments and biological substances; Z91.048 Other nonmedicinal substance allergy status; Y84.2 Radiological procedure and radiotherapy as the cause of abnormal reaction of the patient, or of later complication, without mention of misadventure at the time of the procedure | CPT/HCPCS: 82947; G0277 ==

== ENCOUNTER 2025-05-12 07:17 | Day surgery (SDC) | payer MEDICARE, OTHER | END 2025-05-12 23:22 | disposition home or self-care (01) | LOC: HBO 07:17 | DX: L59.8 Other specified disorders of the skin and subcutaneous tissue related to radiation (principal); L58.9 Radiodermatitis, unspecified; E11.42 Type 2 diabetes mellitus with diabetic polyneuropathy; I50.22 Chronic systolic (congestive) heart failure; G30.9 Alzheimer's disease, unspecified; F02.80 Dementia in other diseases classified elsewhere, unspecified severity, without behavioral disturbance, psychotic disturbance, mood disturbance, and anxiety; Z85.3 Personal history of malignant neoplasm of breast | CPT/HCPCS: 82947; G0277 ==

== ENCOUNTER 2025-05-13 02:30 | Day surgery (SDC) | payer MEDICARE, OTHER | END 2025-05-13 23:29 | disposition home or self-care (01) | LOC: HBO 02:30 | DX: L59.8 Other specified disorders of the skin and subcutaneous tissue related to radiation (principal); L58.9 Radiodermatitis, unspecified; E11.42 Type 2 diabetes mellitus with diabetic polyneuropathy; I50.22 Chronic systolic (congestive) heart failure; G30.9 Alzheimer's disease, unspecified; F02.80 Dementia in other diseases classified elsewhere, unspecified severity, without behavioral disturbance, psychotic disturbance, mood disturbance, and anxiety; Z85.3 Personal history of malignant neoplasm of breast | CPT/HCPCS: 82947; G0277 ==

== ENCOUNTER 2025-05-14 00:19 | Day surgery (SDC) | payer MEDICARE, OTHER | END 2025-05-14 23:30 | disposition home or self-care (01) | LOC: HBO 00:19 | DX: L59.8 Other specified disorders of the skin and subcutaneous tissue related to radiation (principal); L58.9 Radiodermatitis, unspecified; L98.492 Non-pressure chronic ulcer of skin of other sites with fat layer exposed; E11.42 Type 2 diabetes mellitus with diabetic polyneuropathy; I50.22 Chronic systolic (congestive) heart failure; G30.9 Alzheimer's disease, unspecified; Y84.2 Radiological procedure and radiotherapy as the cause of abnormal reaction of the patient, or of later complication, without mention of misadventure at the time of the procedure; Z79.84 Long term (current) use of oral hypoglycemic drugs; Z79.890 Hormone replacement therapy; Z79.899 Other long term (current) drug therapy; Z85.3 Personal history of malignant neoplasm of breast; Z88.2 Allergy status to sulfonamides; Z88.5 Allergy status to narcotic agent; Z88.8 Allergy status to other drugs, medicaments and biological substances; Z91.048 Other nonmedicinal substance allergy status | CPT/HCPCS: 82947; G0277 ==

== ENCOUNTER 2025-05-15 02:02 | Day surgery (SDC) | payer MEDICARE, OTHER ==
[2025-05-15] MEDS ORDERED: Lidocaine HCl 4% Cream 5 GM ONE (08:22)
== END 2025-05-15 23:00 | disposition home or self-care (01) ==
LOC: WOUND 02:02
DX: L59.8 Other specified disorders of the skin and subcutaneous tissue related to radiation (principal); L58.9 Radiodermatitis, unspecified; E11.42 Type 2 diabetes mellitus with diabetic polyneuropathy; I50.22 Chronic systolic (congestive) heart failure; G30.9 Alzheimer's disease, unspecified; F02.80 Dementia in other diseases classified elsewhere, unspecified severity, without behavioral disturbance, psychotic disturbance, mood disturbance, and anxiety; Z85.3 Personal history of malignant neoplasm of breast; L98.492 Non-pressure chronic ulcer of skin of other sites with fat layer exposed; Z88.2 Allergy status to sulfonamides; Z88.5 Allergy status to narcotic agent; Z88.8 Allergy status to other drugs, medicaments and biological substances; Z91.048 Other nonmedicinal substance allergy status; Y84.2 Radiological procedure and radiotherapy as the cause of abnormal reaction of the patient, or of later complication, without mention of misadventure at the time of the procedure
CPT/HCPCS: 82947; A9270; G0277

== ENCOUNTER 2025-05-15 02:05 | Day surgery (SDC) | payer MEDICARE, OTHER | END 2025-05-15 23:00 | disposition home or self-care (01) | LOC: HBO 02:05 | DX: L59.8 Other specified disorders of the skin and subcutaneous tissue related to radiation (principal); L98.492 Non-pressure chronic ulcer of skin of other sites with fat layer exposed; E11.42 Type 2 diabetes mellitus with diabetic polyneuropathy; I50.22 Chronic systolic (congestive) heart failure; G30.9 Alzheimer's disease, unspecified; Z85.3 Personal history of malignant neoplasm of breast; Z88.2 Allergy status to sulfonamides; Z88.5 Allergy status to narcotic agent; Z88.8 Allergy status to other drugs, medicaments and biological substances; Z91.048 Other nonmedicinal substance allergy status; Y84.2 Radiological procedure and radiotherapy as the cause of abnormal reaction of the patient, or of later complication, without mention of misadventure at the time of the procedure | CPT/HCPCS: 82947; G0277 ==

== ENCOUNTER 2025-05-16 03:04 | Day surgery (SDC) | payer MEDICARE, OTHER | END 2025-05-16 23:00 | disposition home or self-care (01) | LOC: HBO 03:04 | DX: L59.8 Other specified disorders of the skin and subcutaneous tissue related to radiation (principal); E11.42 Type 2 diabetes mellitus with diabetic polyneuropathy; I50.22 Chronic systolic (congestive) heart failure; Z85.3 Personal history of malignant neoplasm of breast | CPT/HCPCS: 82947; G0277 ==

== ENCOUNTER 2025-05-19 02:37 | Day surgery (SDC) | payer MEDICARE, OTHER | END 2025-05-19 23:58 | disposition home or self-care (01) | LOC: HBO 02:37 | DX: L59.8 Other specified disorders of the skin and subcutaneous tissue related to radiation (principal); L58.9 Radiodermatitis, unspecified; E11.42 Type 2 diabetes mellitus with diabetic polyneuropathy; I50.22 Chronic systolic (congestive) heart failure; G30.9 Alzheimer's disease, unspecified; F02.80 Dementia in other diseases classified elsewhere, unspecified severity, without behavioral disturbance, psychotic disturbance, mood disturbance, and anxiety; Z85.3 Personal history of malignant neoplasm of breast | CPT/HCPCS: 82947; G0277 ==

== ENCOUNTER 2025-05-20 02:27 | Day surgery (SDC) | payer MEDICARE, OTHER | END 2025-05-20 23:32 | disposition home or self-care (01) | LOC: HBO 02:27 | DX: L59.8 Other specified disorders of the skin and subcutaneous tissue related to radiation (principal); L58.9 Radiodermatitis, unspecified; E11.42 Type 2 diabetes mellitus with diabetic polyneuropathy; I50.22 Chronic systolic (congestive) heart failure; G30.9 Alzheimer's disease, unspecified; F02.80 Dementia in other diseases classified elsewhere, unspecified severity, without behavioral disturbance, psychotic disturbance, mood disturbance, and anxiety; Z85.3 Personal history of malignant neoplasm of breast | CPT/HCPCS: 82947; G0277 ==

== ENCOUNTER 2025-05-21 00:18 | Day surgery (SDC) | payer MEDICARE, OTHER | END 2025-05-21 23:00 | disposition home or self-care (01) | LOC: HBO 00:18 | DX: L59.8 Other specified disorders of the skin and subcutaneous tissue related to radiation (principal); E11.42 Type 2 diabetes mellitus with diabetic polyneuropathy; I50.22 Chronic systolic (congestive) heart failure; Z85.3 Personal history of malignant neoplasm of breast | CPT/HCPCS: 82947; G0277 ==

== ENCOUNTER 2025-05-22 04:07 | Day surgery (SDC) | payer MEDICARE, OTHER ==
[2025-05-22] MEDS ORDERED: Lidocaine HCl 4% Cream 5 GM ONE (09:30)
== END 2025-05-22 23:00 | disposition home or self-care (01) ==
LOC: WOUND 04:07
DX: L59.8 Other specified disorders of the skin and subcutaneous tissue related to radiation (principal); L98.44 Non-pressure chronic ulcer of chest; E11.42 Type 2 diabetes mellitus with diabetic polyneuropathy; I50.22 Chronic systolic (congestive) heart failure; G30.9 Alzheimer's disease, unspecified; Z85.3 Personal history of malignant neoplasm of breast; Z88.2 Allergy status to sulfonamides; Z88.5 Allergy status to narcotic agent; Z88.8 Allergy status to other drugs, medicaments and biological substances; Z91.048 Other nonmedicinal substance allergy status; Z90.11 Acquired absence of right breast and nipple; Y84.2 Radiological procedure and radiotherapy as the cause of abnormal reaction of the patient, or of later complication, without mention of misadventure at the time of the procedure; L58.9 Radiodermatitis, unspecified
CPT/HCPCS: 82947; A9270; G0277

== ENCOUNTER 2025-05-22 04:14 | Day surgery (SDC) | payer MEDICARE, OTHER | END 2025-05-22 23:00 | disposition home or self-care (01) | LOC: HBO 04:14 | DX: L59.8 Other specified disorders of the skin and subcutaneous tissue related to radiation (principal); L58.9 Radiodermatitis, unspecified; L98.492 Non-pressure chronic ulcer of skin of other sites with fat layer exposed; E11.42 Type 2 diabetes mellitus with diabetic polyneuropathy; I50.22 Chronic systolic (congestive) heart failure; G30.9 Alzheimer's disease, unspecified; F02.80 Dementia in other diseases classified elsewhere, unspecified severity, without behavioral disturbance, psychotic disturbance, mood disturbance, and anxiety; Z85.3 Personal history of malignant neoplasm of breast | CPT/HCPCS: 82947; G0277 ==

== ENCOUNTER 2025-05-23 06:43 | Day surgery (SDC) | payer MEDICARE, OTHER | END 2025-05-23 23:00 | disposition home or self-care (01) | LOC: HBO 06:43 | DX: L59.8 Other specified disorders of the skin and subcutaneous tissue related to radiation (principal); L58.9 Radiodermatitis, unspecified; E11.42 Type 2 diabetes mellitus with diabetic polyneuropathy; I50.22 Chronic systolic (congestive) heart failure; G30.9 Alzheimer's disease, unspecified; F02.80 Dementia in other diseases classified elsewhere, unspecified severity, without behavioral disturbance, psychotic disturbance, mood disturbance, and anxiety; Z85.3 Personal history of malignant neoplasm of breast | CPT/HCPCS: 82947; G0277 ==

== ENCOUNTER 2025-05-26 00:15 | Day surgery (SDC) | payer MEDICARE, OTHER | END 2025-05-26 23:00 | disposition home or self-care (01) | LOC: HBO 00:15 | DX: L59.8 Other specified disorders of the skin and subcutaneous tissue related to radiation (principal); E11.42 Type 2 diabetes mellitus with diabetic polyneuropathy; I50.22 Chronic systolic (congestive) heart failure; G30.9 Alzheimer's disease, unspecified; Z85.3 Personal history of malignant neoplasm of breast | CPT/HCPCS: 82947; G0277 ==

== ENCOUNTER 2025-05-27 00:29 | Day surgery (SDC) | payer MEDICARE, OTHER | END 2025-05-27 23:37 | disposition home or self-care (01) | LOC: HBO 00:29 | DX: L59.8 Other specified disorders of the skin and subcutaneous tissue related to radiation (principal); E11.42 Type 2 diabetes mellitus with diabetic polyneuropathy; I50.22 Chronic systolic (congestive) heart failure; G30.9 Alzheimer's disease, unspecified; Z85.3 Personal history of malignant neoplasm of breast | CPT/HCPCS: 82947; G0277 ==

== ENCOUNTER → 2025-06-09 | Day surgery (SDC) | payer MEDICARE, OTHER | LOC: HBO 12:20 | DX: L59.8 Other specified disorders of the skin and subcutaneous tissue related to radiation (principal); E11.42 Type 2 diabetes mellitus with diabetic polyneuropathy; I50.22 Chronic systolic (congestive) heart failure; Z85.3 Personal history of malignant neoplasm of breast | CPT/HCPCS: 82947; G0277 ==

== ENCOUNTER 2025-06-10 10:00 | Day surgery (SDC) | payer MEDICARE, OTHER | END 2025-06-10 23:00 | disposition home or self-care (01) | LOC: HBO 10:00 | DX: L59.8 Other specified disorders of the skin and subcutaneous tissue related to radiation (principal); L98.492 Non-pressure chronic ulcer of skin of other sites with fat layer exposed; L58.9 Radiodermatitis, unspecified; E11.42 Type 2 diabetes mellitus with diabetic polyneuropathy; I50.22 Chronic systolic (congestive) heart failure; G30.9 Alzheimer's disease, unspecified; Z85.3 Personal history of malignant neoplasm of breast; Y84.2 Radiological procedure and radiotherapy as the cause of abnormal reaction of the patient, or of later complication, without mention of misadventure at the time of the procedure | CPT/HCPCS: 82947; G0277 ==

== ENCOUNTER 2025-06-11 07:53 | Day surgery (SDC) | payer MEDICARE, OTHER | END 2025-06-11 23:00 | disposition home or self-care (01) | LOC: HBO 07:53 | DX: L59.8 Other specified disorders of the skin and subcutaneous tissue related to radiation (principal); L58.9 Radiodermatitis, unspecified; E11.42 Type 2 diabetes mellitus with diabetic polyneuropathy; I50.22 Chronic systolic (congestive) heart failure; G30.9 Alzheimer's disease, unspecified; F02.80 Dementia in other diseases classified elsewhere, unspecified severity, without behavioral disturbance, psychotic disturbance, mood disturbance, and anxiety; Z85.3 Personal history of malignant neoplasm of breast | CPT/HCPCS: 82947; G0277 ==